=== PATIENT | female | born 1930 | race Caucasian/White ===

== ENCOUNTER 2016-10-08 12:23 | Outpatient (CLI) | payer MEDICARE, OTHER ==
[2016-10-08 12:42] LABS: INR-International Normal Ratio 1.8; Prothrombin Time 21.3 SEC (12.0-14.7)
== END 2016-10-08 12:24 | disposition home or self-care (01) ==
LOC: MADLAB 12:23
PROVIDERS: ATTEND Nurse Practitioner
DX: I48.91 Unspecified atrial fibrillation (principal)
CPT/HCPCS: 36415; 85610

== ENCOUNTER 2016-11-01 12:55 | Outpatient (CLI) | payer MEDICARE, OTHER ==
[2016-11-01 13:56] LABS: INR-International Normal Ratio 2.4; Prothrombin Time 25.9 SEC (12.0-14.7)
== END 2016-11-01 12:56 | disposition home or self-care (01) ==
LOC: MADLAB 12:55
PROVIDERS: ATTEND Nurse Practitioner
DX: I48.91 Unspecified atrial fibrillation (principal)
CPT/HCPCS: 36415; 85610

== ENCOUNTER 2016-12-06 12:51 | Outpatient (CLI) | payer MEDICARE, OTHER ==
[2016-12-06 17:51] LABS: INR-International Normal Ratio 2.2; Prothrombin Time 25.6 SEC (12.0-14.7)
== END 2016-12-06 12:52 | disposition home or self-care (01) ==
LOC: MADLAB 12:51
PROVIDERS: ATTEND Nurse Practitioner
DX: I48.91 Unspecified atrial fibrillation (principal)
CPT/HCPCS: 36415; 85610

== ENCOUNTER 2017-01-03 13:00 | Outpatient (CLI) | payer MEDICARE, OTHER ==
[2017-01-03 13:40] LABS: INR-International Normal Ratio 1.5; Prothrombin Time 17.9 SEC (12.0-14.7)
== END 2017-01-03 13:01 | disposition home or self-care (01) ==
LOC: MADLAB 13:00
PROVIDERS: ATTEND Nurse Practitioner
DX: I48.91 Unspecified atrial fibrillation (principal)
CPT/HCPCS: 85610

== ENCOUNTER 2017-01-16 15:48 | Outpatient (CLI) | payer MEDICARE, OTHER ==
[2017-01-16 16:31] LABS: INR-International Normal Ratio 1.1
== END 2017-01-16 15:49 | disposition home or self-care (01) ==
LOC: MADLAB 15:48
PROVIDERS: ATTEND Nurse Practitioner
DX: I48.91 Unspecified atrial fibrillation (principal)
CPT/HCPCS: 36415; 85610

== ENCOUNTER 2017-02-14 15:16 | Outpatient (CLI) | payer MEDICARE, OTHER ==
[2017-02-14 15:48] LABS: Prothrombin Time 22.8 SEC (12.0-14.7)
== END 2017-02-14 15:17 | disposition home or self-care (01) ==
LOC: MADLAB 15:16
PROVIDERS: ATTEND Nurse Practitioner
DX: I48.91 Unspecified atrial fibrillation (principal)
CPT/HCPCS: 36415; 85610

== ENCOUNTER 2017-03-07 14:57 | Outpatient (CLI) | payer OTHER ==
[2017-03-07 15:55] LABS: INR-International Normal Ratio 1.9; Prothrombin Time 22.8 SEC (12.0-14.7)
== END 2017-03-07 14:58 | disposition home or self-care (01) ==
LOC: MADLAB 14:57
PROVIDERS: ATTEND Nurse Practitioner
DX: I48.91 Unspecified atrial fibrillation (principal)
CPT/HCPCS: 36415; 85610

== ENCOUNTER 2017-03-26 13:42 | Outpatient (CLI) | payer OTHER ==
[2017-03-26 14:12] LABS: INR-International Normal Ratio 2.5; Prothrombin Time 27.8 SEC (12.0-14.7)
== END 2017-03-26 13:43 | disposition home or self-care (01) ==
LOC: MADLAB 13:42
PROVIDERS: ATTEND Nurse Practitioner
DX: I48.91 Unspecified atrial fibrillation (principal)
CPT/HCPCS: 36415; 85610

== ENCOUNTER 2017-04-25 12:33 | Outpatient (CLI) | payer OTHER ==
[2017-04-25 13:15] LABS: INR-International Normal Ratio 2.7; Prothrombin Time 29.8 SEC (12.0-14.7)
== END 2017-04-25 12:34 | disposition home or self-care (01) ==
LOC: MADLAB 12:33
PROVIDERS: ATTEND Nurse Practitioner
DX: Z51.81 Encounter for therapeutic drug level monitoring (principal); I48.91 Unspecified atrial fibrillation; Z79.01 Long term (current) use of anticoagulants
CPT/HCPCS: 36415; 85610

== ENCOUNTER 2017-06-12 14:28 | Outpatient (CLI) | payer MEDICARE, OTHER ==
[2017-06-12 15:11] LABS: INR-International Normal Ratio 2.7; Prothrombin Time 29.7 SEC (12.0-14.7)
== END 2017-06-12 14:29 | disposition home or self-care (01) ==
LOC: MADLAB 14:28
PROVIDERS: ATTEND Nurse Practitioner
DX: I48.91 Unspecified atrial fibrillation (principal)
CPT/HCPCS: 36415; 85610

== ENCOUNTER 2017-07-18 13:04 | Outpatient (CLI) | payer MEDICARE, OTHER ==
[2017-07-18 13:30] LABS: Prothrombin Time 41.8 SEC (12.0-14.7)
[2017-07-18 13:38] LABS: INR-International Normal Ratio 4.1
== END 2017-07-18 13:05 | disposition home or self-care (01) ==
LOC: MADLAB 13:04
PROVIDERS: ATTEND Nurse Practitioner
DX: I48.91 Unspecified atrial fibrillation (principal)
CPT/HCPCS: 36415; 85610

== ENCOUNTER 2017-07-22 13:46 | Outpatient (CLI) | payer MEDICARE, OTHER ==
[2017-07-22 14:25] LABS: INR-International Normal Ratio 1.2
== END 2017-07-22 13:47 | disposition home or self-care (01) ==
LOC: MADLAB 13:46
PROVIDERS: ATTEND Nurse Practitioner
DX: I48.91 Unspecified atrial fibrillation (principal)
CPT/HCPCS: 36415; 85610

== ENCOUNTER 2018-11-06 12:49 | Outpatient (CLI) | payer MEDICARE ==
[2018-11-06 13:27] LABS: INR-International Normal Ratio 1.3; Prothrombin Time 16.4 SEC (12.0-14.7)
== END 2018-11-06 12:50 | disposition home or self-care (01) ==
LOC: MADLAB 12:49
PROVIDERS: ATTEND Nurse Practitioner Family
DX: Z51.81 Encounter for therapeutic drug level monitoring (principal); I48.2 Chronic atrial fibrillation; Z79.01 Long term (current) use of anticoagulants
CPT/HCPCS: 36415; 85610

== ENCOUNTER 2019-01-07 13:27 | Outpatient (CLI) | payer MEDICARE, OTHER ==
[2019-01-07 13:58] LABS: Prothrombin Time 43.4 SEC (12.0-14.7)
[2019-01-07 14:20] LABS: INR-International Normal Ratio 4.6
== END 2019-01-07 13:28 | disposition home or self-care (01) ==
LOC: MADLAB 13:27
PROVIDERS: ATTEND Nurse Practitioner Family
DX: I48.91 Unspecified atrial fibrillation (principal)
CPT/HCPCS: 36415; 85610

== ENCOUNTER 2019-01-17 22:29 | Emergency (ER) | payer MEDICARE, OTHER ==
[~2019-01-17 22:29] MED LIST: Amiodarone 150 MG/3 ML VIAL ONE; DOPamine/D5W 400 mg/250 ml PREMIX ONE; EPINEPHrine 1 MG/10 ML Abboject SYRINGE ONE; Sodium Bicarb 50 MEQ/50 ML Abboject 8.4% SYRINGE ONE; Sodium Chloride 0.9% 1,000 ML BAG ONE
--- NOTE | 2019-01-17 23:44 | RAD ---
RADIOGRAPH CHEST 1 VIEW: DATE: 01/17/2019 TIME: 11:25 PM HISTORY: 88-year-old female in respiratory failure. Status post intubation. 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 This is a supine image, which would be insensitive for pneumothorax detection. All of the following findings are new compared to the prior study: Defibrillation paddle obscures right upper lobe. Diffuse bilateral mixed interstitial and alveolar in filtrates, predominantly interstitial, worst at bilateral mid and lower lung zones. Because of multiple ECG leads, it is difficult to follow the distal portions of what appear to be an esophageal tube (distal tip is probably in the mid esophagus) and what may be an endotracheal tube (distal tip difficult to visualize with certainty, but possibly in the right mainstem bronchus. IMPRESSION: 1) status post intubation. Because of the multiple overlying ECG leads and pacemaker, it is difficult to be sure of the location of what is assumed to be endotracheal tube, but it is suspected to be in the right mainstem bronchus. 2) nasogastric tube or orogastric tube distal tip is probably in the mid esophagus. 3) recommend repeat chest radiograph after removal of ECG leads. 4) probable diffuse pulmonary edema. 5) ongoing cardioversion
== END 2019-01-18 02:29 | disposition expired ==
LOC: MADERS 22:29
DX: I46.9 Cardiac arrest, cause unspecified (principal)
CPT/HCPCS: 71045; 96361; 96374; 96375; 96376; J0171; J0282; J1265; J7050